=== PATIENT | male | born 1965 | race Caucasian/White ===

== ENCOUNTER 2016-09-30 11:56 | Inpatient (IN) | payer MEDICARE, OTHER ==
--- NOTE | ~2016-09-30 | CO ---
Unit #: [id number] #: [id number] Patient: LIANG SANCHEZ [id number] [address] [place], [place] [address] [id number] MR#: [id number] NAME: LIANG SANCHEZ. ROOM: 556 Age: 51 Sex: M Admission Date: 09/30/2016 : 1965 Attending Physician: Eber Gandhi M.D. Primary Care Physician: [facility] Consultation Date: 09/30/2016 CONSULTATION REPORT REASON FOR CONSULTATION Perineal abscess. HISTORY OF PRESENT ILLNESS This 51-year-old man has just been admitted through the [facility] Emergency Department where he is seen for the above complaint. He has diabetes, but has never had a perineal infection before. He developed increasing soreness and swelling of the perineal area over the last 3 to 4 days and when noted low-grade fever this morning over 100 degrees he presented. He has started draining spontaneously prior to my arrival. He has been admitted by Medicine and is to be started on vancomycin and Zosyn. He has only mild pain. He has no associated dysuria or other urinary symptoms. He has no history of perirectal abscess or altered bowel habits. He has no history of gross hematuria, urinary infection, or stone disease. PAST MEDICAL HISTORY Poorly-controlled diabetes, hypertension, schizophrenia, depression, mitral valve prolapse, noncompliance with the below medical regimen. MEDICATIONS Metformin, glipizide, aspirin, bupropion, atorvastatin, aripiprazole, lisinopril. ALLERGIES Carbamazepine. FAMILY HISTORY Negative for prostate cancer. SOCIAL HISTORY Nonsmoker. REVIEW OF SYSTEMS As per HPI. Otherwise, and GI review of systems negative. Positive for temperature of 100.3 degrees, temperature for low-grade fever and chills yesterday. PHYSICAL EXAMINATION GENERAL: The patient is sitting on the gurney in the emergency department, alert, fairly comfortable with gauze in his underwear, which is stained with salmon-colored drainage from the perineum. Unit #: [id number] #: [id number] Patient: LIANG SANCHEZ : Normal penis and normal testicles. Minimal erythema on left hemiscrotum. Brawny edema of the perineum closer to base of scrotum than the anus. No obvious scarring or perirectal involvement externally. RECTAL: Deferred to OR. ABDOMEN: Soft, nontender. No masses or hernias, scars or organomegaly appreciated. EXTREMITIES: No edema. VITAL SIGNS: Temperature 100.2 degrees, pulse 124, blood pressure 178/89, respirations 16, oxygen saturation 100%. DIAGNOSTIC STUDIES LABORATORY RESULTS: Include WBC 7.9, hemoglobin 13.9, BUN 11, creatinine 1.1. Urinalysis; no blood, no nitrites, no leukocyte esterase. IMPRESSION Perineal abscess spontaneously draining, will require formal operative incision and drainage, best done after period of antibiotics and more safely done when the patient n.p.o. as he has eaten several hours ago. PLAN We will observe on antibiotics overnight and schedule incision and drainage of perineal abscess for the morning. Dictated by... Todd Garcia M.D. ELA/salo TD: 10/01/2016 03:44 JOB #: [id number] CONSULTATION REPORT Page 1 of 1 X Todd Garcia MD CONSULTATION REPORT
--- NOTE | ~2016-09-30 | A ---
[facility] Nutrition Therapy DATE: 10/02/16 Patient: LIANG SANCHEZ Physician: ROSA MARIA Address: [address] [place] [address] Room/Bed: [address] [place] [address], Zip: [place] [address] Admit Date: 09/30/16 Date of : [birth year] Height: 6 2 Weight: 250 113.6 NUTRITIONAL ASSESSMENT: REASON: Consult re: DM diet education 51 y/o male admitted for a scrotal abscess. PMH: HTN, DM, HLD, schizophrenia Anthropometrics: ht: 6'2" wt: 250# (113 kg) BMI: 32 Labs: Glu 228, BUN 8, HgbA1c 10.7 Meds: NaCl, percocet, morphine-sulfate, zosyn, novolog, levemir, abilify, zestril I/O & Bowel function: 4590/3825. Last BM 10/01 Skin Integrity: scrotal abcess Assessment: Chart reviewed, events noted. Pt seen for consult re: DM diet education. RD internet sales manager visited pt at bedside. Pt reports eating "whatever he can afford", which is usually a sandwich, ramen noodles, potatoes, beans, hot dogs. He drinks water and diet soda. RD internet sales manager provided written and verbal education on carbohydrate counting and gave examples of healthy foods to try. RD will remain available. Intervention: DM diet education Recommendations: 1. Pt would benefit from seeing an outpatient RD or attending DM classes at his local health dept. Please consult RD for any further nutritional needs. Respectfully, ROSHAN ARAUJO, electrical intern Food and Nutritional Services [facility] cc: client file
--- NOTE | ~2016-09-30 | CR72 ---
[facility] A Service of [facility] & [facility] RADIOLOGY TEXT RESULTS PATIENT: LIANG SANCHEZ LOCATION: [place] [address] : [birth year] UNIT #: [id number] AGE: [address]: Lilli Olivarez MD SEX: M ORDER DR: [id number] [place] [id number] [facility]. [place], [place] [address] [id number] MR#: [id number] Acc #: [id number] NAME: LIANG SANCHEZ : 1965 SEX: M STUDY DATE/TIME: 09/30/2016 12:21 UNIT: MIRA ROOM: STUDY DESCRIPTION: CR Chest Single View Portable Attending Physician: Dereck Reno M.D. Ordering Physician: Dereck Reno M.D. Primary Care Physician: [facility] MEDICAL IMAGING REPORT This report is preliminary unless electronic signature is present EXAM Portable chest, 09/30/2016 HISTORY Sepsis for 4 days, chest congestion. FINDINGS A single AP portable view of the chest shows both lungs to be clear. The heart is normal in size. The mediastinal contour is normal. No significant bone abnormalities are seen. IMPRESSION Normal portable chest. Dictated by... Rosalio Walker M.D. THIS IS AN ELECTRONICALLY VERIFIED REPORT Rosalio Walker M.D. at 10/01/2016 6:27 AM JESUS/ila TD: 09/30/2016 15:43 JOB #: [id number] MEDICAL IMAGING REPORT Page 1 of 1 COPY
--- NOTE | ~2016-09-30 | EKG ---
PATIENT: LIANG SANCHEZ UNIT #: [id number] Ventricular Rate: 88 BPM Atrial Rate: 88 BPM P-R Interval: 176 ms QRS Duration: 142 ms Q-T Interval: 404 ms QTC Calculation(Bezet): 488 ms P [place]: 65 degrees Calculated R [place]: -63 degrees Calculated T [place]: 71 degrees Diagnosis Line: Normal sinus rhythm Diagnosis Line: Right bundle branch block Diagnosis Line: Left anterior fascicular block Diagnosis Line: Bifascicular block Diagnosis Line: Abnormal ECG Diagnosis Line: No previous ECGs available Diagnosis Line: Confirmed by COLEEN TAVERA MD ([id number]) on Diagnosis Line: 09/30/2016 3:09:49 PM INTERPRETING MD: LUIS
--- NOTE | ~2016-09-30 | OR ---
Unit #: [id number] #: [id number] Patient: LIANG SANCHEZ [id number] [address] [place], [place] [address] [id number] MR#: [id number] NAME: LIANG SANCHEZ. ROOM: 556 Date of Procedure: 10/02/2016 Admission Date: 09/30/2016 Surgeon: Todd Garcia M.D. : 1965 Attending Physician: Eber Gandhi M.D. Primary Care Physician: [facility] PROCEDURE OPERATIVE NOTE PREOPERATIVE DIAGNOSIS Perineal abscess. POSTOPERATIVE DIAGNOSIS Perineal abscess, small, chronic, improved on antibiotics. PROCEDURE PERFORMED Incision and drainage of perineal abscess with in and out Guardado catheterization and examination under anesthesia. SURGEON Dr. Todd Garcia ANESTHESIA General. INDICATIONS This 51-year-old man presented through the emergency department with a swollen, draining perineum which was sore, foul smelling with a low grade fever. He has improved on vancomycin and Zosyn. The wound has been growing Streptococcus agalactiae with full report pending. PROCEDURE The patient was given satisfactory general anesthesia and positioned in exaggerated dorsal lithotomy. The perineum was prepped and draped with the scrotum slinged anteriorly. A small incision was made with a 15 blade through the punctum. There was no pus under pressure remaining. There was a cavity, however, which was probed with a hemostat and the incision extended in a cruciate fashion to allow palpation of this with a finger. I did not feel the urethra but had a nurse, still without contact to the wound, place a 16 Guardado catheter and this was not palpable. I examined the edges of the wound and they were quite thickened and scarred but there was no deep pus or necrosis. I then took my other hand and performed a rectal examination with bimanual palpation excluding any evidence of perirectal fistula. The catheter was removed while hands were in this position and the catheter tip was palpable only at the apex of the rectal finger near the prostate. There was no contamination of the field with the rectum. The wound was packed with forceps and a moistened rolled gauze. Fluffed gauze and scrotal support were applied. The patient appears to have a chronic superficial abscess. Unit #: [id number] #: [id number] Patient: LIANG SANCHEZ PLAN Will pursue routine dressing changes and discharge home, hopefully with additional culture information. Dictated by... Justo Castillo/ina TD: 10/02/2016 08:44 JOB #: [id number] CC: Lilli Olivarez M.D. PROCEDURE OPERATIVE NOTE Page 1 of 1 X Todd Garcia MD X PROCEDURE OPERATIVE NOTE
--- NOTE | ~2016-09-30 | HP ---
Unit #: [id number] #: [id number] Patient: LIANG SANCHEZ [id number] [place] [address] [place], [place] [address] [id number] MR#: [id number] NAME: LIANG SANCHEZ ROOM: Age: 51 Sex: M Admission Date: 09/30/2016 : 1965 Attending Physician: Dereck Duran M.D. Primary Care Physician: [facility]. HISTORY AND PHYSICAL CHIEF COMPLAINT Abscess below penis. HISTORY OF PRESENT ILLNESS The patient is a 51-year-old male with past medical history of diabetes, hypertension, hyperlipidemia, mitral valve prolapse, schizophrenia and depression who presented to the emergency department for evaluation of the above. The patient states that he noticed a bump in the scrotal area 3 days ago. It has increased in size and become increasingly painful. He also has had some bloody drainage this morning. He denies any fever. No similar episode. He has had chills. He denies any chest pain. No cough or cold symptoms. He has not been taking his metformin or glipizide due to "not motivated." He does not routinely check his blood sugars at home. In the emergency department temperature was 100.2, pulse 124. Laboratory notable for glucose of 392. White blood cell count 7.9. Lactic acid 1.3. He was given vancomycin and Zosyn, as well as a 30 mL/kg normal saline bolus. He is being admitted to [facility] for evaluation and further treatment. The emergency room physician, Dr. Duran, spoke with Dr. Garcia of urology, who agreed to see the patient in consultation. PAST MEDICAL HISTORY 1. Admission to [facility] June 28 through June 29, 2005 for new diabetes. 2. Diabetes. 3. Mitral valve prolapse. 4. Depression. 5. Schizophrenia, followed by [facility]. PAST SURGICAL HISTORY 1. Tonsillectomy. 2. Cataract surgery. SOCIAL HISTORY The patient denies tobacco, alcohol or illicit drug use. He is on disability. FAMILY HISTORY Notable for his father having mental illness. ALLERGIES Unit #: [id number] #: [id number] Patient: LIANG SANCHEZ Carbamazepine. HOME MEDICATIONS 1. Metformin 1,000 mg b.i.d. 2. Glipizide 10 mg daily. 3. Aspirin 81 mg daily. 4. Bupropion 150 mg b.i.d. 5. Lipitor 20 mg daily. 6. Abilify 5 mg daily. 7. Zestril 25 mg daily, REVIEW OF SYSTEMS A complete review of systems is negative except as indicated in the HPI. PHYSICAL EXAMINATION VITAL SIGNS: Temperature is 100.2, pulse 124, respirations 16, blood pressure 178/89, oxygen saturation 100% on room air. GENERAL: The patient is a male who is awake and alert in no acute distress. HEENT: The head is atraumatic. Mucous membranes are moist. NECK: Supple. Trachea is midline. CARDIOVASCULAR: Regular rate and rhythm. RESPIRATORY: Lungs are clear to auscultation bilaterally with no increased work of breathing. ABDOMEN: Soft, nontender with bowel sounds present in all 4 quadrants. EXTREMITIES: Extremities are nontender with no pedal edema. NEUROLOGIC: The patient is awake and alert. He follows commands. PSYCHIATRIC: Mood and affect are normal. The patient is cooperative. SKIN: Skin of examined areas is warm and dry. GENITOURINARY: The scrotal area demonstrates an area of induration that is actively draining and tender to palpation with surrounding erythema, consistent with abscess. DIAGNOSTIC TESTS LABORATORY: CBC notable for MCV of 82.3. INR is 1. Lactic acid is 1.3. Comprehensive metabolic panel notable for glucose of 392. Urinalysis notable for greater than 1,000 glucose. Troponin is less than 0.05. ASSESSMENT 1. The patient is a 51-year-old male with scrotal abscess. The patient received vancomycin and Zosyn in the emergency department. 2. Sepsis with initial lactic acid of 1.3. 3. Uncontrolled diabetes with initial glucose of 392. The patient received 30 mL/kg bolus of normal saline in the emergency department. 4. Hypertension. 5. Hyperlipidemia. 6. Mitral valve prolapse. 7. Schizophrenia. 8. Depression. PLAN 1. Admit to intermediate level. 2. NPO until seen by urology. 3. Consult Dr. Garcia regarding scrotal abscess. 4. Normal saline at 125 mL an hour. 5. Blood cultures x2. 6. Wound culture and sensitivity. 7. Scrotal ultrasound. Unit #: [id number] #: [id number] Patient: LIANG SANCHEZ 8. Vancomycin and Zosyn pending further workup. 9. Sepsis protocol with repeat lactic acid. 10. P.r.n. Tylenol. 11. Hemoglobin A1C. 12. Low-dose sliding scale insulin with Accu-Cheks. 13. Check EKG for further evaluation of tachycardia. 14. Repeat labs in the morning. 15. SCDs for DVT prophylaxis. 16. Additional workup and consultants based on above. Dictated by Justo Enciso/radha TD: 09/30/2016 15:26 JOB #: [id number] HISTORY AND PHYSICAL Page 1 of 1 X Lilli Olivarez MD X HISTORY AND PHYSICAL
--- NOTE | ~2016-09-30 | DS ---
Unit #: [id number] #: [id number] Patient: LIANG SANCHEZ [id number] [address] [address] [id number] MR#: [id number] NAME: LIANG SANCHEZ ROOM: 226 Age: 51 Sex: M Admission Date: 09/30/2016 : 1965 Discharge Date: 10/04/2016 Attending Physician: Eber Gandhi M.D. Primary Care Physician: [facility] DISCHARGE SUMMARY ADMISSION DIAGNOSES 1. Scrotal abscess. 2. Sepsis. 3. Uncontrolled diabetes type 2. 4. Hypertension. 5. Hyperlipidemia. 6. Mitral valve prolapse. 7. Schizophrenia. 8. Depression. DISCHARGE DIAGNOSES 1. Perineal abscess, status post I and D. 2. Type 2 diabetes mellitus. 3. Hypertension. 4. Hyperlipidemia. 5. Schizophrenia. 6. Depression. 7. Noncompliance with diabetes medications, diet and glucometer checks at home. 8. Sepsis, resolved. CONSULTANTS Todd Garcia M.D. - service. PROCEDURES Incision and drainage of perineal abscess with in and out Guardado catheterization and examination under anesthesia. CONDITION Stable. DISPOSITION Home with [facility] health to follow for monitoring of local wound care, local wound care supplies and diabetes compliance monitoring. DISCHARGE MEDICATIONS 1. Tylenol 650 mg p.o. every six hours as needed for mild pain or temp greater than 100.4. 2. Bupropion HCL SR 150 mg p.o. b.i.d. 3. Metformin HCL ER 1000 mg p.o. b.i.d. 4. Abilify 5 mg p.o. daily. 5. Lipitor 20 mg p.o. daily. 6. Zestril 25 mg p.o. daily. 7. Aspirin 81 mg p.o. daily. Unit #: [id number] #: [id number] Patient: LIANG SANCHEZ 8. Glipizide 10 mg p.o. daily before breakfast. 9. Pnu-Imune Syringe 25 mcg on day of discharge if not contraindicated. 10. Keflex 500 mg, one p.o. q.i.d. x10 days. Prescription written for #40, no refills. DISCHARGE INSTRUCTIONS The patient will be discharged home with [facility] health to follow as dictated above. The patient is to continue local wound care as ordered by the air tester. Specifically, Hydrofera Blue classic dressing applied in the wound to fill it, then covered with Mepilex white foam and mesh underwear to secure everything. Please note - this patient was trained by the wound care nurse and observed performing his own dressing change prior to discharge. The patient is to call to schedule a followup appointment to see Dr. Garcia in two weeks per his orders. The patient is to complete all of his Keflex prescription as prescribed or to contact his PCP if he develops an intolerance to it. He is to check Accu-Cheks fasting and two hours after the evening meal and keep a record to take to his primary care physician at [facility], where he is established, for them to review and to further evaluate and manage his uncontrolled diabetes mellitus. He is to continue on a constant carbohydrate diet. He has been advised to call and schedule a followup with his PCP in 5 to 7 days. RECENT DIAGNOSTIC STUDIES LABORATORY: WBC 6.1, hemoglobin 12.5, hematocrit 37.3, platelets 202,000, sodium 138, potassium 3.5, chloride 106, CO2 26, glucose 147, BUN 7, creatinine 0.9, calcium 8.5. Preliminary anaerobic wound culture - no growth at 48 hours. Final aerobic wound culture - Strep agalactiae group B rare. Blood cultures preliminary x2 - no growth after 48 hours. Final blood cultures pending at this time. Hemoglobin A1c 10.7. Initial lactic acid 1.3. Repeat lactic acid 0.9. HOSPITAL COURSE The patient is a 51-year-old male who presented to [facility] on the day of admission with complaints of an abscess below his penis. He also noted some bloody drainage on the date of admission. He reported chills but no fever. He also confirmed that he had not been taking metformin or glipizide due to not feeling motivated at home. He also stated that he does not routinely check his blood sugars at home. The patient was noted to have an elevation of temp to 100.2 orally, to be tachycardic and elevated lactic acid. He was started on IV vancomycin and Zosyn and received 30 mL/kg of normal saline bolus in the ED. Dr. Garcia was consulted for further urologic evaluation and management. The patient was admitted to the hospital. Please refer to history and physical report for complete details. The patient was evaluated by Dr. Garcia for perineal abscess. Per review of Dr. Garcia's notes, the area has started draining spontaneously prior to 's initial evaluation. His impression was spontaneously draining perineal abscess for which he recommended formal operative I and D and recommended, after a period of antibiotics. The patient was observed on antibiotics. The patient was made NPO and I and D was performed the Unit #: [id number] #: [id number] Patient: LIANG SANCHEZ following day. Local wound care was ordered by Dr. Garcia and the wound care nurse was consulted for wound management education. The patient is awake, alert, afebrile, eating and drinking well. He is ambulating and is capable of performing his own dressing change. He has agreed to allow [facility] home health to follow him after discharge to monitor his wound as well as compliance with diabetes management. I have discussed with him in detail the importance of compliance with his diet, oral hypoglycemics, exercise as tolerated and close follow up with his primary care physician at [facility] and he has verbalized understanding of this information. The patient was given prescriptions for Keflex as well as for normal saline which he will need for dressing changes at home. He tells me he has all of his diabetes medications. He was also given a prescription for a new glucometer as well as glucometer test strips as would be covered by his insurance for b.i.d. testing as dictated above. Dictated by... Gretchen Breen A.P.R.N. for Justo Crane/ina TD: 10/06/2016 09:13 JOB #: [id number] DISCHARGE SUMMARY Page 1 of 1 X Gretchen Breen APRN X DISCHARGE SUMMARY
--- NOTE | ~2016-09-30 | EKG ---
PATIENT: LIANG SANCHEZ UNIT #: [id number] Ventricular Rate: 65 BPM Atrial Rate: 65 BPM P-R Interval: 176 ms QRS Duration: 134 ms Q-T Interval: 416 ms QTC Calculation(Bezet): 432 ms P [place]: 23 degrees Calculated R [place]: -32 degrees Calculated T Thomas: -28 degrees Diagnosis Line: Normal sinus rhythm Diagnosis Line: Left axis deviation Diagnosis Line: Right bundle branch block Diagnosis Line: Nonspecific T wave abnormality Diagnosis Line: Abnormal ECG Diagnosis Line: When compared with ECG of 30-SEP-2016 13:08, Diagnosis Line: T wave inversion now evident in Inferior leads Diagnosis Line: T wave inversion no longer evident in Anterior Diagnosis Line: leads Diagnosis Line: QT has shortened Diagnosis Line: Confirmed by COLEEN TAVERA MD ([id number]) on Diagnosis Line: 10/01/2016 10:38:43 PM INTERPRETING MD: LUIS
[2016-09-30 12:58] LABS: BASOPHIL# 0.1 X10e3 (0-0.3); BASOPHIL% 0.8 % (0-2.5); EOSINOPHIL# 0.2 X10e3 (0-0.7); EOSINOPHIL% 1.9 % (0.0-7.0); HEMATOCRIT 41.8 % (38.0-50.0); HEMOGLOBIN 13.9 gm/dL (13.0-16.0); LYMPHOCYTE# 1.1 X10e3 (1.0-3.5); LYMPHOCYTE% 13.8 % (17.0-45.0); MEAN CELL VOLUME 82.3 FL (83-96); MEAN CORPUSCULAR HEMOGLOBIN 27.4 PG (28-34); MEAN CORPUSCULAR HGB CONC 33.3 g/dL (30-36); MEAN PLATELET VOLUME 10.1 FL (6.5-11.5); MONOCYTE# 0.9 X10e3 (0-1.0); MONOCYTE% 11.6 % (3.0-12.0); NEUTROPHIL# 5.7 X10e3 (1.5-7.1); NEUTROPHIL% 71.9 % (40-75); PLATELET COUNT 189 X10e3 (140-420); RED BLOOD COUNT 5.08 X10e (3.90-5.60); RED CELL DISTRIBUTION WIDTH 13.9 % (11.0-15.5); WHITE BLOOD COUNT 7.9 X10e3 (4.0-10.5)
[2016-09-30 13:11] LABS: PARTIAL THROMBOPLASTIN TIME 24.5 SECONDS (23.5-31.3); PROTHROMBIN TIME (PATIENT) 10.8 SECONDS (10.0-11.7)
[2016-09-30 13:20] LABS: DIFF IND NO
[2016-09-30 13:32] LABS: ALBUMIN SERUM 4.4 g/dL (3.5-5.0); BILIRUBIN, DIRECT 0.2 mg/dL (0.0-0.2); BILIRUBIN,TOTAL 1.2 mg/dL (0.2-2.0); CALCIUM SERUM 8.9 mg/dL (8.4-10.2); CREATININE SERUM 1.1 mg/dL (0.6-1.4); GLOM FILT RATE Estimated 76.8 mL/min (>60); POTASSIUM 3.8 mmol/L (3.5-5.1); PROTEIN TOTAL SERUM 7.4 g/dL (6.0-8.3)
[2016-09-30] MEDS ORDERED: METFORMIN HCL1000 M1 PO (13:33)
[2016-09-30] MEDS ORDERED: GLIPIZIDE10 MG PO (13:36)
[2016-09-30] MEDS ORDERED: ASPIRIN81 M2 PO (13:36)
[2016-09-30] MEDS ORDERED: BUPROPION HCL150 M3 PO (13:37)
[2016-09-30] MEDS ORDERED: LIPITOR20 MG PO (13:37)
[2016-09-30] MEDS ORDERED: ABILIFY5 MG PO (13:38)
[2016-09-30] MEDS ORDERED: LISINOPRIL PO (13:40)
[2016-09-30 13:58] LABS: URINE SOURCE CLEAN CATCH
[2016-09-30 14:02] LABS: URINE APPEARANCE CLEAR; URINE BILIRUBIN NEG (NEG); URINE BLOOD NEG (NEG); URINE COLOR YELLOW; URINE GLUCOSE >1000 MG/DL (NEG); URINE KETONE NEG (NEG); URINE LEUKOCYTE ESTERASE NEG (NEG); URINE NITRATE NEG (NEG); URINE PH 6.5 (5-8); URINE PROTEIN NEG (NEG); URINE SPECIFIC GRAVITY 1.023 (1.003-1.035)
[2016-09-30 14:07] LABS: CULTURE INDICATED? NO
[2016-09-30 14:11] LABS: POC - CKMB <1.0 ng/mL (0.0-7.9); POC - TROPONIN <0.05 ng/mL (<=0.05)
[2016-10-01 06:12] LABS: BASOPHIL# 0.1 X10e3 (0-0.3); BASOPHIL% 0.9 % (0-2.5); EOSINOPHIL# 0.2 X10e3 (0-0.7); EOSINOPHIL% 3.6 % (0.0-7.0); HEMATOCRIT 37.1 % (38.0-50.0); HEMOGLOBIN 12.6 gm/dL (13.0-16.0); LYMPHOCYTE# 1.3 X10e3 (1.0-3.5); LYMPHOCYTE% 21.8 % (17.0-45.0); MEAN CELL VOLUME 83.7 FL (83-96); MEAN CORPUSCULAR HEMOGLOBIN 28.4 PG (28-34); MEAN CORPUSCULAR HGB CONC 33.9 g/dL (30-36); MEAN PLATELET VOLUME 10.6 FL (6.5-11.5); MONOCYTE# 0.6 X10e3 (0-1.0); MONOCYTE% 10.4 % (3.0-12.0); NEUTROPHIL# 3.9 X10e3 (1.5-7.1); NEUTROPHIL% 63.3 % (40-75); PLATELET COUNT 169 X10e3 (140-420); RED BLOOD COUNT 4.43 X10e (3.90-5.60); RED CELL DISTRIBUTION WIDTH 14.1 % (11.0-15.5); WHITE BLOOD COUNT 6.1 X10e3 (4.0-10.5)
[2016-10-01 06:20] LABS: DIFF IND NO
[2016-10-01 06:51] LABS: BUN/CREATININE RATIO 8.88; CALCIUM SERUM 8.5 mg/dL (8.4-10.2); CREATININE SERUM 0.9 mg/dL (0.6-1.4); GLOM FILT RATE Estimated 97.9 mL/min (>60); POTASSIUM 3.6 mmol/L (3.5-5.1)
[2016-10-02 06:01] LABS: HEMATOCRIT 37.1 % (38.0-50.0); HEMOGLOBIN 12.5 gm/dL (13.0-16.0); MEAN CELL VOLUME 82.8 FL (83-96); MEAN CORPUSCULAR HEMOGLOBIN 27.9 PG (28-34); MEAN CORPUSCULAR HGB CONC 33.7 g/dL (30-36); MEAN PLATELET VOLUME 10.7 FL (6.5-11.5); RED BLOOD COUNT 4.48 X10e (3.90-5.60); RED CELL DISTRIBUTION WIDTH 13.9 % (11.0-15.5)
[2016-10-02 07:05] LABS: BUN/CREATININE RATIO 8.88; CALCIUM SERUM 8.5 mg/dL (8.4-10.2); CREATININE SERUM 0.9 mg/dL (0.6-1.4); GLOM FILT RATE Estimated 97.9 mL/min (>60); POTASSIUM 3.6 mmol/L (3.5-5.1)
[2016-10-03 05:50] LABS: HEMATOCRIT 37.3 % (38.0-50.0); HEMOGLOBIN 12.5 gm/dL (13.0-16.0); MEAN CELL VOLUME 82.2 FL (83-96); MEAN CORPUSCULAR HEMOGLOBIN 27.6 PG (28-34); MEAN CORPUSCULAR HGB CONC 33.6 g/dL (30-36); RED BLOOD COUNT 4.54 X10e (3.90-5.60); RED CELL DISTRIBUTION WIDTH 13.9 % (11.0-15.5); WHITE BLOOD COUNT 6.1 X10e3 (4.0-10.5)
[2016-10-03 07:00] LABS: BUN/CREATININE RATIO 7.77; CALCIUM SERUM 8.5 mg/dL (8.4-10.2); CREATININE SERUM 0.9 mg/dL (0.6-1.4); GLOM FILT RATE Estimated 97.9 mL/min (>60); POTASSIUM 3.5 mmol/L (3.5-5.1)
[2016-10-04] MEDS ORDERED: KEFLEX500 MG PO (14:25)
[2016-10-04] MEDS ORDERED: ACETAMINOPHEN325 MG PO (14:26)
== END 2016-10-04 17:01 | disposition home health service (06) | DRG 872 ==
LOC: CED 11:56 → CEDOF 15:00 → CED 15:52 → CEDOF 15:52 → C5B 21:21 → C2A 10-02 09:24
PROVIDERS: Emergency Medicine; Family Medicine; Internal Medicine; Nurse Practitioner; Urology
PROC: 0V950ZZ Drainage of Scrotum, Open Approach (ICD-10-PCS; principal; 2016-10-02 07:30)
DX: A41.9 Sepsis, unspecified organism (principal); E11.65 Type 2 diabetes mellitus with hyperglycemia; I10 Essential (primary) hypertension; N49.2 Inflammatory disorders of scrotum; E78.5 Hyperlipidemia, unspecified; I34.1 Nonrheumatic mitral (valve) prolapse; F20.9 Schizophrenia, unspecified; F32.9 Major depressive disorder, single episode, unspecified; Z98.49 Cataract extraction status, unspecified eye; Z81.8 Family history of other mental and behavioral disorders; Z88.8 Allergy status to other drugs, medicaments and biological substances; Z79.84 Long term (current) use of oral hypoglycemic drugs; Z79.82 Long term (current) use of aspirin; Z91.19 Patient's noncompliance with other medical treatment and regimen
CPT/HCPCS: 71010; 80048; 80076; 80202; 81003; 82553; 82947; 83036; 83605; 84484; 85025; 85027; 85610; 85730; 87040; 87070; 87075; 87077; 87205; 93005; 99285; J1815; J2250; J2270; J2405; J2543; J3010; J3370